=== PATIENT | female | born 1975 | race Two or more races ===

== ENCOUNTER 2018-09-23 13:24 | Emergency (ER) | payer MEDICAID ==
[2018-09-23] MEDS ORDERED: NS 1,000 ML IV ONE (13:40)
--- NOTE | 2018-09-23 13:41 | EDPHY ---
H & P Stated Complaint: painful urination Time Seen by Provider: 09/23/18 13:40 HPI/ROS: CHIEF COMPLAINT: Dysuria HISTORY OF PRESENT ILLNESS: Patient presents the ED with 2 days of dysuria. She denies any fever or flank pain. She denies vomiting. She is also complaining of some mild neck spasm and pain. She denies any acute numbness or weakness. The patient has remote history of urinary tract infection. She denies recent antibiotics. The patient denies any additional acute complaints. REVIEW OF SYSTEMS: A comprehensive 10 point review of systems is otherwise negative aside from elements mentioned in the history of present illness. Source: Patient Exam Limitations: No limitations - Personal History LMP (Females 10-55): 22-28 Days Ago Current Tetanus/Diphtheria Vaccine: Yes Current Tetanus Diphtheria and Acellular Pertussis (TDAP): Yes Tetanus Vaccine Date: within 10 yrs - Medical/Surgical History Hx Asthma: Yes Hx Chronic Respiratory Disease: No Hx Diabetes: No Hx Cardiac Disease: No Hx Renal Disease: No Hx Cirrhosis: No Hx Alcoholism: No Hx HIV/AIDS: No Hx Splenectomy or Spleen Trauma: No Other PMH: depression, anxiety, back problems UTI - Social History Smoking Status: Never smoked - Physical Exam Exam: General Appearance: Alert, no distress Eyes: Pupils equal and round no pallor or injection ENT, Mouth: Mucous membranes moist Respiratory: There are no retractions, lungs are clear to auscultation Cardiovascular: Regular rate and rhythm Gastrointestinal: Abdomen is soft and nontender, no masses, bowel sounds normal Neurological: 5/5 strength all 4 extremities Skin: Warm and dry, no rashes Musculoskeletal: Neck is supple nontender Extremities: symmetrical, full range of motion Constitutional: Initial Vital Signs Temperature (C) 36.8 C 09/23/18 13:29 Heart Rate 90 09/23/18 13:29 Respiratory Rate 16 09/23/18 13:29 Blood Pressure 127/78 H 09/23/18 13:29 O2 Sat (%) 95 09/23/18 13:29 O2 Delivery Mode Room Air Allergies/Adverse Reactions: No Known Allergies Allergy (Verified 09/23/18 13:28) Home Medications: Medication Instructions Recorded Cephalexin [Keflex] 500 mg PO TID #21 cap 09/23/18 Medical Decision Making ED Course/Re-evaluation: Patient presents the ED with symptoms of cystitis. Clinically she is not have evidence of pyelonephritis. She is nontoxic and well-appearing. Patient will be started on Keflex. She is advised to use ibuprofen and Tylenol as needed for pain management. She should follow up with her primary care provider for further evaluation. Differential Diagnosis: Differential diagnosis considered includes cystitis, pyelonephritis, mesenteric adenitis - Data Points Laboratory Results: 09/23/18 13:30 Urine Color YELLOW Urine Appearance CLEAR Urine pH 5.0 (5.0-7.5) Ur Specific [place] 1.015 (1.002-1.030) Urine Protein NEGATIVE (NEGATIVE) Urine Ketones NEGATIVE (NEGATIVE) Urine Blood 1+ H (NEGATIVE) Urine Nitrate NEGATIVE (NEGATIVE) Urine Bilirubin NEGATIVE (NEGATIVE) Urine Urobilinogen NEGATIVE EU EU (0.2-1.0) Ur Leukocyte Esterase 2+ H (NEGATIVE) Urine RBC Pending Urine WBC Pending Ur Epithelial Cells Pending Urine Glucose NEGATIVE (NEGATIVE) Departure - Departure Disposition: Home, Routine, Self-Care Clinical Impression: Urinary tract infection Condition: Good Instructions: Urinary Tract Infection in Women (ED) Additional Instructions: 1. Take antibiotics as directed for next 7 days. 2. Return to the ED for markedly worsening symptoms or other concerns. 3. Please follow-up with your primary care provider for a recheck within the week. 4. Tylenol and ibuprofen as needed for pain. Referrals: [facility],. [Clinic] - As per Instructions
[2018-09-23 14:26] VITALS: BP 110/75
== END 2018-09-23 14:30 | disposition home or self-care (01) ==
DX: N39.0 Urinary tract infection, site not specified (principal); E86.9 Volume depletion, unspecified; F32.9 Major depressive disorder, single episode, unspecified; F41.9 Anxiety disorder, unspecified; Z87.440 Personal history of urinary (tract) infections

== ENCOUNTER 2018-12-15 21:22 | Emergency (ER) | payer MEDICAID ==
--- NOTE | 2018-12-15 21:28 | EDPHY ---
H & P Time Seen by Provider: 12/15/18 21:28 HPI/ROS: HPI CHIEF COMPLAINT: Possible urinary tract infection. HISTORY OF PRESENT ILLNESS: Patient is a 43-year-old female, denies any significant medical history does have a history of urinary tract infections. She reports over the past 2 days she has had increasing urinary frequency and dysuria. No significant abdominal pain, denies fever, denies vomiting, denies back pain. Denies being . Past Medical History: Denies significant medical history has a remote history of urinary tract infection. Past Surgical History: Tubal ligation Social History: Smokes tobacco daily. Marijuana. Denies drugs or alcohol. Family History: Noncontributory ROS REVIEW OF SYSTEMS: 10 Systems were reviewed and negative with the exception of the elements mentioned in the history of present illness. Exam Constitutional appears well nontoxic no acute distress triage nursing summary reviewed, vital signs reviewed, awake/alert. Eyes normal conjunctivae and sclera, EOMI, PERRLA. HENT normal inspection, atraumatic, moist mucus membranes, no epistaxis, neck supple/ no meningismus, no raccoon eyes. Respiratory clear to auscultation bilaterally, normal breath sounds, no respiratory distress, no wheezing. Cardiovascular rate normal, regular rhythm, no murmur, no edema, distal pulses normal. Gastrointestinal soft, non-tender, no rebound, no guarding, normal bowel sounds, no distension, no pulsatile mass. Genitourinary no CVA tenderness. Musculoskeletal no midline vertebral tenderness, full range of motion, no calf swelling, no tenderness of extremities, no meningismus, good pulses, neurovascularly intact. Skin pink, warm, & dry, no rash, skin atraumatic. Neurologic awake, alert and oriented x 3, AAOx3, moves all 4 extremities equally, motor intact, sensory intact, CN II-XII intact, normal cerebellar, normal vision, normal speech. Psychiatric normal mood/affect. Heme/Lymph/Immune no lymphadenopathy. Differential Diagnosis: Includes but is not limited to in a particular order UTI, cystitis, pyelonephritis, Medical Decision Making: Plan for this patient send urinalysis, urine dip Re-evaluation: Urinalysis dip here in the ER shows 1+ blood, leukocyte Estrace. Will start treatment with Keflex, 1st dose given here, urine culture sent. Pyridium Encourage patient to stay well-hydrated drink lots of fluids. Antibiotics as prescribed. Return emergency room she develops worsening abdominal pain, fever, vomiting, back pain, not doing well. She understands and is comfortable this plan. Urine negative Vital signs stable. Source: Patient - Personal History Tetanus Vaccine Date: within 10 yrs - Medical/Surgical History Hx Asthma: Yes Hx Chronic Respiratory Disease: No Hx Diabetes: No Hx Cardiac Disease: No Hx Renal Disease: No Hx Cirrhosis: No Hx Alcoholism: No Hx HIV/AIDS: No Hx Splenectomy or Spleen Trauma: No Other PMH: depression, anxiety, back problems UTI - Social History Smoking Status: Never smoked Constitutional: Initial Vital Signs Temperature (C) 36.6 C 12/15/18 21:27 Heart Rate 86 12/15/18 21:27 Respiratory Rate 20 12/15/18 21:27 Blood Pressure 112/63 12/15/18 21:27 O2 Sat (%) 96 12/15/18 21:27 O2 Delivery Mode Room Air Allergies/Adverse Reactions: No Known Allergies Allergy (Verified 09/23/18 13:28) Home Medications: Medication Instructions Recorded Cephalexin [Keflex] 500 mg PO Q6H #28 cap 12/15/18 Phenazopyridine HCl [Pyridium] 200 mg PO TID #15 tab 12/15/18 Medical Decision Making - Data Points Microbiology Results: MICROBIOLOGY 12/15/18 21:20 Urine,Clean Catch Urine Culture - Final Escherichia Coli [place] Types Medications Given: Discontinued Medications Cephalexin (Keflex 500 Mg Prepack#4) 1 btl TAKEHOME EDNOW ONE PRN Reason: Protocol Stop: 12/15/18 21:33 Last Admin: 12/15/18 21:47 Dose: 1 btl Cephalexin HCl (Keflex) 500 mg PO EDNOW ONE PRN Reason: Protocol Stop: 12/15/18 21:33 Last Admin: 12/15/18 21:47 Dose: 500 mg Phenazopyridine HCl (Pyridium) 200 mg PO EDNOW ONE Stop: 12/15/18 21:33 Last Admin: 12/15/18 21:47 Dose: 200 mg Point of Care Test Results: Urine Collection Date 12/15/18 Collection Time 21:49 HCG Results Negative Urine Dip Collection Date 12/15/18 Collection Time 21:48 Specific [place] (1.002-1.030) 1.010 PH (5.0-7.5) 7.5 Leukocytes (Negative) Negative Nitrites (Negative) Negative Protein (Negative) Negative Glucose (Negative) Negative Ketones (Negative) Trace Urobilnogen (0.2-1.0 EU) 2.0 Bilirubin (Negative) Negative Blood (Negative) Trace Departure - Departure Disposition: Home, Routine, Self-Care Clinical Impression: Urinary tract infection Qualifiers: Urinary tract infection type: acute cystitis Hematuria presence: without hematuria Qualified Code(s): N30.00 - Acute cystitis without hematuria Condition: Good Instructions: Urinary Tract Infection in Women (ED) Additional Instructions: 1. Please drink lots of fluids stay well-hydrated 2. Antibiotics as prescribed 3. Follow up with your primary care doctor Referrals: Patient,NotPresent [Primary Care Provider] - As per Instructions Prescriptions: Cephalexin [Keflex] 500 mg PO Q6H #28 cap Phenazopyridine HCl [Pyridium] 200 mg PO TID #15 tab
[2018-12-15] MEDS ORDERED: PHENAZOPYRIDINE HCL 200 MG TAB PO ONE (21:32)
[2018-12-15] MEDS ORDERED: CEPHALEXIN 500 MG CAP PO ONE (21:32)
[2018-12-15] MEDS ORDERED: CEPHALEXIN 500MG PREPACK#4 BTL TAKEHOME ONE (21:32)
[2018-12-15 22:09] VITALS: BP 112/62
== END 2018-12-15 22:07 | disposition home or self-care (01) ==
LOC: CED 21:22
DX: N30.00 Acute cystitis without hematuria (principal)
CPT/HCPCS: 81025-ER; 99284-ER

== ENCOUNTER 2019-02-25 19:34 | Emergency (ER) | payer MEDICAID | END 2019-02-25 22:18 | disposition home or self-care (01) | LOC: CED 19:34 ==